=== PATIENT | male | born 1950 | race Caucasian/White ===

== ENCOUNTER 2016-08-13 09:52 | Emergency (ER) | payer BC ==
[2016-08-13 10:01] VITALS: BP 159/90
[2016-08-13] MEDS ORDERED: Cephalexin 500 MG Cap ONE (10:31)
[2016-08-13] MEDS ORDERED: Cephalexin 500 MG Cap PO ONE (10:31)
--- NOTE | 2016-08-13 10:33 | EDM.PDOC ---
ED HPI GENERAL MEDICAL PROBLEM - General Chief Complaint: Bite:Animal, Insect Stated Complaint: [id number] TICK BITE Time Seen by Provider: 08/13/16 10:30 Source of Information: Reports: Patient, RN Notes Reviewed - History of Present Illness INITIAL COMMENTS - FREE TEXT/NARRATIVE: Patient is a 66 year old male who present with dime size are on the anterior right lower bautista. States that he took a shower 3 days ago and did not notice the area but this morning noticed it and became worried. denies pain or fever. Onset: Today Location: Reports: Lower Extremity, Right Quality: Reports: Other (denies) Severity: Mild Worsens with: Reports: None Associated Symptoms: Reports: No Other Symptoms - Related Data Allergies Allergy/AdvReac Type Severity Reaction Status Date / Time No Known Allergies Allergy Verified 08/13/16 09:56 Home Meds: Home Meds Aspirin [Ecotrin] 81 mg PO 03/19/13 [History] Benazepril/Hydrochlorothiazide [Lotensin HCT 20-25 MG] 10 - 12.5 mg PO DAILY 05/01 [History] Fish Oil/Thomas-3 Fatty Acids [Fish Oil] 2 gm PO DAILY 03/19/13 [History] Multivitamin [Multivitamins] 1 each PO DAILY 03/19/13 [History] Niacin/Simvastatin [Simcor 500-20 MG] 1 tab PO BEDTIME 03/19/13 [History] Simvastatin [Zocor] 40 mg PO BEDTIME 03/19/13 [History] Lutein [Natural Lutein] 03/20/13 [History] Past Medical History HEENT History: Reports: Hard of Hearing, Impaired Vision Cardiovascular History: Reports: High Cholesterol, Hypertension - Past Surgical History GI Surgical History: Reports: Hernia, Abdominal Social & Family History - Family History Family Medical History: Noncontributory - Tobacco Use Smoking Status *Q: Never Smoker Years of Tobacco use: 40 - Caffeine Use Caffeine Use: Reports: Coffee, Soda - Alcohol Use Days Per Week of Alcohol Use: 2 Number of Drinks Per Day: 10 Total Drinks Per Week: 20 - Recreational Drug Use Recreational Drug Use: No ED ROS GENERAL - Review of Systems Review Of Systems: ROS reveals no pertinent complaints other than HPI. ED EXAM, ANIMAL BITE - Physical Exam Exam: See Below Exam Limited By: No Limitations General Appearance: Alert, WD/WN, No Apparent Distress Eye Exam: Bilateral Eye: PERRL Head: Atraumatic, Normocephalic Neck: Normal Inspection, Supple, Non-Tender, Full Range of Motion Respiratory/Chest: No Respiratory Distress, Lungs Clear, Normal Breath Sounds, No Accessory Muscle Use, Chest Non-Tender Cardiovascular: Normal Peripheral Pulses, Regular Rate, Rhythm, No Edema, No Gallop, No JVD, No Murmur, No Rub Skin Exam: Normal Color, Warm/Dry, Other (dime size excoriated area to the right lower leg. without drainage and has mild erythema - ) Lymphadenopathy: Right: No Adenopathy Course - Vital Signs Last Recorded V/S: Last Vital Signs Temp 97.2 F 08/13/16 09:58 Pulse 85 08/13/16 09:58 Resp 18 08/13/16 09:58 BP 159/90 H 08/13/16 09:58 Pulse Ox 99 08/13/16 09:58 - Re-Assessments/Exams Free Text/Narrative Re-Assessment/Exam: 08/13/16 10:34 Take antibiotics till gone clean with dial soap and then use neosporin Departure - Departure Time of Disposition: 10:36 Disposition: Home, Self-Care 01 Condition: good Clinical Impression: Cellulitis - Discharge Information Instructions: Wound Infection, [id number], Cellulitis, Adult, [id number] Forms: ED Department Discharge Additional Instructions: Take antibiotics till gone clean with dial soap and then use neosporin See the Primary care provider for follow up if not improving in 3-5 days.
== END 2016-08-13 10:38 | disposition home or self-care (01) ==
LOC: DL.ED 09:52
DX: L03.115 Cellulitis of right lower limb (principal); E78.00 Pure hypercholesterolemia, unspecified; I10 Essential (primary) hypertension; Z79.899 Other long term (current) drug therapy; Z79.82 Long term (current) use of aspirin
CPT/HCPCS: 99283; A9270-GY

== ENCOUNTER 2017-04-18 05:39 | Day surgery (SDC) | payer OTHER, BC ==
[2017-04-18] MEDS ORDERED: Midazolam 1 MG/ML 2 ML SDV IV ONE ×7 (05:40→07:19)
[2017-04-18] MEDS ORDERED: fentaNYL 100 MCG/2 ML SDV IV ONE ×2 (05:40→07:13)
[2017-04-18] MEDS ORDERED: Sodium Chloride 0.9% 10 ML Syringe FLUSH PRN (06:00)
[2017-04-18] MEDS ORDERED: Dextrose 5%-0.45% NaCl 1,000 ML IV SCH (06:00)
[2017-04-18] MEDS ORDERED: fentaNYL 100 MCG/2 ML SDV ONE ×2 (06:04→06:05)
[2017-04-18] MEDS ORDERED: Midazolam 1 MG/ML 2 ML SDV ONE (06:04)
[2017-04-18 10:57] VITALS: BP 109/67
--- NOTE | 2017-04-18 12:22 | OR ---
DATE: 04/18/2017 PROCEDURES: Total colonoscopy, narrow-band imaging, and cold snare polypectomy. INSTRUMENT USED: CF-H180 AL Olympus video colonoscope. PREMEDICATIONS: Fentanyl 100 mcg intravenous, Versed 4 mg intravenous. Nasal O2 cannula. The procedure was done under pulse oximetry, BP recording, and molder pipe covering. INDICATION: Screening colonoscopic examination is done for detection of any polypoid lesions and removal, endoscopic hemostasis therapy if needed. DESCRIPTION OF PROCEDURE: Initial rectal exam was unremarkable. Rigid anoscopy was normal. The colonoscope was passed with ease. Numerous scattered diverticula were noted in the distal left colon along with deformity. The scope was passed with ease up to the ileocecal area. Photographs were taken of the normal-appearing cecum identified by double-bulged ileocecal folds. No bleeding was noted from any of the visualized areas at the commencement of the examination. There was quite a bit of fecal material that had to be aspirated. No stricture. No vascular ectasia. No large isolated ulcerations seen. No evidence of diffuse inflammatory bowel disease in the form of friability, contact bleeding, or ulcerations. Probing the proximal sides of folds and flexures, using adequate distention and clearing up the stool material, withdrawal of the scope was made. In the mid transverse colon, 3-mm sized benign-appearing polyp was noted. NBI views were obtained. Photographs were taken. Cold snare polypectomy was done. The tissue was retrieved and sent for histopathology. No bleeding was noted from any of the visualized areas at the completion of the examination. IMPRESSION: 1. Diverticulosis. 2. Diminutive transverse colon polyp. The patient tolerated the procedure well. [facility] /[id number]
== END 2017-04-18 09:15 | disposition home or self-care (01) ==
LOC: DL.ENDO 05:39
PROVIDERS: ATTEND Internal Medicine Gastroenterology
DX: Z12.11 Encounter for screening for malignant neoplasm of colon (principal); D12.3 Benign neoplasm of transverse colon; K57.30 Diverticulosis of large intestine without perforation or abscess without bleeding
CPT/HCPCS: 45385; J2250; J3010; J7042; 88305

== ENCOUNTER 2022-06-06 05:18 | Day surgery (SDC) | payer MEDICARE, OTHER ==
[2022-06-06] MEDS ORDERED: Dextrose 5%-0.45% NaCl 1,000 ML IV SCH (05:55)
[2022-06-06] MEDS ORDERED: fentaNYL 100 MCG/2 ML SDV ONE (06:24)
[2022-06-06] MEDS ORDERED: Midazolam 1 MG/ML 2 ML SDV ONE (06:24)
[2022-06-06] MEDS ORDERED: fentaNYL 100 MCG/2 ML SDV IV ONE ×2 (06:29→06:30)
[2022-06-06] MEDS ORDERED: Midazolam 1 MG/ML 2 ML SDV IV ONE ×6 (06:31→06:38)
[2022-06-06 07:44] VITALS: BP 118/71; PULSE 82
== END 2022-06-06 08:00 | disposition home or self-care (01) ==
LOC: DL.ENDO 05:18
PROVIDERS: ATTEND Internal Medicine Gastroenterology
DX: Z12.11 Encounter for screening for malignant neoplasm of colon (principal); K63.5 Polyp of colon; K57.30 Diverticulosis of large intestine without perforation or abscess without bleeding; E78.00 Pure hypercholesterolemia, unspecified; J44.9 Chronic obstructive pulmonary disease, unspecified; Z86.010 Personal history of colon polyps
CPT/HCPCS: 88305; J2250; J3010; J7042